=== PATIENT | female | born 1950 | race Caucasian/White ===

== ENCOUNTER 2021-02-04 11:58 | Emergency (ER) | payer SELFPAY ==
[~2021-02-04] VITALS: Ht 157.5 cm; Wt 99.8 kg
[~2021-02-04 11:58] MED LIST: ASPI-1822 PO; METF500T PO
[2021-02-04 12:18] VITALS: BP 133/53
[2021-02-04 12:31] VITALS: BP 196/86
--- NOTE | 2021-02-04 13:18 | NUR ---
70 Y/O F BIB SELF FROM HOME, PATIENT PRESENTS TO ED WITH CHEST PAIN THAT RADIATES TO L SHOULDER FOR 3 MONTHS, PAIN COMES AND GOES. PT STATES SHE IS ALSO HAVING NON PRODUCTIVE COUGH. DENIES N/V/D; SKIN IS PINK/WARM/DRY; AAOX4 WITH EVEN AND STEADY GAIT; LUNGS CLEAR BL; HR EVEN AND REGULAR, NSR RATE 60; PT DENIES ANY FEVER OR SOB AT THIS TIME; PATIENT STATES PAIN OF 8/10 AT THIS TIME; VSS; PATIENT POSITIONED FOR COMFORT; HOB ELEVATED; BEDRAILS UP X2; BED DOWN. ER MD MADE AWARE OF PT STATUS. PMH: DM2 NKA MED: METFORMIN
--- NOTE | 2021-02-04 13:58 | NUR ---
PT AMB TO [facility] W/O ASST
[2021-02-04 14:01] LABS: BASOPHILS % (AUTO) 0.5 % (0.0-2.0); EOSINOPHILS # (AUTO) 0.1 K/uL (0-0.4); EOSINOPHILS % (AUTO) 1.5 % (0.0-4.0); HEMATOCRIT 38.4 % (36-48); HEMOGLOBIN 12.5 g/dL (12.0-16.0); LYMPHOCYTES # (AUTO) 1.9 K/uL (2.5-16.5); LYMPHOCYTES % (AUTO) 26.5 % (20.5-51.1); MEAN CORPUSCULAR HEMOGLOBIN 29 pg (27-31); MEAN CORPUSCULAR HGB CONC 33 g/dL (33-37); MEAN CORPUSCULAR VOLUME 89.9 fL (80-94); MONOCYTES # (AUTO) 0.4 K/uL (0.8-1.0); MONOCYTES % (AUTO) 5.9 % (1.7-9.3); NEUTROPHILS # (AUTO) 4.7 K/uL (1.8-7.7); NEUTROPHILS % (AUTO) 65.6 % (42.2-75.2); PLATELET COUNT (AUTO) 286 K/uL (140-450); RED BLOOD CELL COUNT(AUTO) 4.27 MIL/uL (4.20-5.40); RED CELL DISTRIBUTION WIDTH 14.7 % (11.6-13.7); WHITE BLOOD COUNT (AUTO) 7.1 K/uL (4.8-10.8)
[2021-02-04 14:10] LABS: APPEARANCE,URINE CLEAR (CLEAR); BILIRUBIN,URINE NEGATIVE (NEGATIVE); BLOOD, URINE NEGATIVE (NEGATIVE); COLOR,URINE YELLOW (YELLOW); LEUKOCYTE ESTERASE ,URINE NEGATIVE (NEGATIVE); NITRITE, URINE NEGATIVE (NEGATIVE); UGLUCOSE 3+ (NEGATIVE)
[2021-02-04 14:17] LABS: ALBUMIN 3.4 g/dL (3.4-5.0); ANION GAP 13.2 (8-16); CARBON DIOXIDE 27.4 mmol/L (21-32); CREATININE 0.6 mg/dL (0.6-1.3); POTASSIUM 3.6 mmol/L (3.5-5.1); TOTAL BILIRUBIN 0.2 mg/dL (0.0-1.0)
--- NOTE | 2021-02-04 14:45 | NUR ---
PT WAS GIVEN SANDWICH, APPLE JUICE AND SUGAR FREE JELLO. OKAY PER ERMD. ERMD AWARE PT IS DIABETIC.
[2021-02-04 15:45] VITALS: BP 138/63
--- NOTE | 2021-02-04 15:46 | NUR ---
Patient discharged with v/s stable. Written and verbal after care instructions given and explained. Patient verbalized understanding. Ambulatory with SON to car. All questions addressed prior to discharge. Advised to follow up with PMD.
== END 2021-02-04 15:46 | disposition home or self-care (01) ==
LOC: MED 11:58
DX: E11.65 Type 2 diabetes mellitus with hyperglycemia (principal); I10 Essential (primary) hypertension
CPT/HCPCS: 36415; 71045; 80053; 81003; 84484; 85025; 93005; 99285; Q0092